=== PATIENT | female | born 2005 | race Caucasian/White ===

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

== ENCOUNTER 2024-07-13 09:04 | Emergency (ER) | payer MEDICAID ==
[~2024-07-13] VITALS: Ht 160 cm; Wt 70.0 kg
[~2024-07-13 09:04] MED LIST: AMOX500T2 MT; IBUP-2028 MT
[2024-07-13 09:37] VITALS: BP 108/67; PULSE 73; RESP 16; TEMP 98; O2SAT 99
[2024-07-13 13:12] LABS: CLARITY URINE CLOUDY (CLEAR); COLOR URINE YELLOW (YELLOW); GLUCOSE URINE NEGATIVE (NEGATIVE); KETONES URINE NEGATIVE (NEGATIVE); LEUKOCYTE ESTERASE URINE 2+ (NEGATIVE); NITRITE URINE NEGATIVE (NEGATIVE); OCCULT BLOOD URINE NEGATIVE (NEGATIVE); PH URINE 5.5 (4.5-8.0); PROTEIN URINE NEGATIVE (NEGATIVE); SPECIFIC GRAVITY URINE 1.013 (1.005-1.030); UROBILINOGEN URINE 0.2 E.U./dL (0.2-1.0)
[2024-07-13 13:38] LABS: SQUAMOUS EPITHELIAL CELL URINE 3+ /lpf (RARE/1+)
[2024-07-13 13:39] LABS: BACTERIA URINE 3+
[2024-07-13 13:40] LABS: RBC URINE 0-2 /hpf (0-2)
[2024-07-13] MEDS ORDERED: NITR-87 MT (13:48)
== END 2024-07-13 14:46 | disposition home or self-care (01) ==
LOC: ER 09:04
DX: M25.552 Pain in left hip (principal); N39.0 Urinary tract infection, site not specified
CPT/HCPCS: 76856; 81003; 99284